=== PATIENT | male | born 1955 | race Caucasian/White ===

== ENCOUNTER 2024-06-10 16:22 | Emergency (ER) | payer MEDICARE, SELFPAY ==
[2024-06-10 16:22] VITALS: BP 164/99; PULSE 81; RESP 7; TEMP 36.4; O2SAT 99; BMI 28.5
--- NOTE | 2024-06-10 16:57 | CT_ITS ---
STUDY: CT FACIAL BONES WITHOUT CONTRAST REASON FOR EXAM: Male, 69 years old. Trauma RADIATION DOSAGE (If Supplied By Facility): CTDIvol = ( 29.38 ) mGy, DLP = ( 664.99 ) mGycm TECHNIQUE: The patient was scanned in a multi detector CT scanner. Sagittal and coronal images were reconstructed. Individualized dose optimization techniques were used for this CT. COMPARISON: None. FINDINGS: There is premaxillary soft tissue swelling and paranasal soft tissue swelling without evidence for acute fracture of the nasal bones or anterior maxillary spine.. Normal orbital kimball and orbital contents. There is mild mucosal thickening of the bilateral maxillary sinuses. CT/Sinus/Facial Bone IMPRESSION: No evidence for acute facial bone Mild maxillary sinusitis likely chronic Electronically Signed: Miles Pedroza MD at 18:49 EDT ,
--- NOTE | 2024-06-10 16:58 | ED.VIS.FALL ---
HPI HPI - Fall History of Present Illness Chief Complaint: Fall Narrative Narrative: 69-year-old male who denies significant past medical history presents with fall and injury to his face/nose. He was at work today, and was walking rather briskly. His feet got caught up and he fell forward. He heard a crack when he hit the ground. He noticed bleeding from his nose, and he states he feels pressure in his front teeth and has upper lip in the midline. He is unsure of his last tetanus immunization. He denies loss of consciousness, no neck pain. No other injuries except for his nose and his upper lip. Once again he states he feels pressure in his midface. He does not take blood thinners. PFSH PFSH Allergy/AdvReac Type Severity Reaction Status Date / Time No Known Allergies Allergy Verified 06/10/24 16:25 Social History Smoking Status: Never smoker ROS ROS ED ROS Narrative Constitutional: No fever, no chills. HEENT: No sore throat. No neck pain. No loss of vision. No rhinorrhea. Bleeding from nose. Pressure and midface and front teeth. Cardiovascular: No chest pain. No palpitations. No pedal edema. Respiratory: No cough, no shortness of breath. Abdominal: No abdominal pain. No nausea. No vomiting. Genitourinary: No dysuria. No hematuria. Musculoskeletal: No myalgias. No arthralgias. Neurologic: No headaches. No dizziness. No lightheadedness. No loss of consciousness. Skin: No rash. No change in color. EXAM Physical Exam Narrative Exam Narrative: GCS 15. ABCs intact. Head is normocephalic. PERRL, EOMI, no entrapment inspection of the nose reveals mild tenderness diffusely, but no crepitance. Small amount of blood left nares. No nasal septal hematoma. There is a hematoma of the upper lip with noted dried blood. Dentition appears normal without fracture. Neck soft and supple without vertebral point tenderness or bony step-off. Full range of motion. Cardiovascular examination regular rate and rhythm. Lungs clear to auscultation bilaterally. Abdomen soft nontender with normoactive bowel sounds. Neurological examination nonfocal and nonlateralizing. Alert, oriented x 3. Able to raise arms above head without difficulty. Neurovascular intact bilateral upper and lower extremities. Const Vital Signs: 06/10/24 16:22 06/10/24 17:16 Temperature 97.6 F L Temperature Source Temporal Pulse Rate 81 Respiratory Rate 7 L Respiratory Effort Normal Non-Labored Respiratory Depth Normal Respiratory Pattern Normal Blood Pressure 164/99 H Blood Pressure Mean 120 Pulse Ox 99 Oxygen Delivery Method Room Air MDM MDM MDM Narrative Medical decision making narrative: Differential diagnosis includes nasal fracture versus contusion and midface/maxillary fracture versus contusion. Patient declined analgesia or ice pack. His upper lip wound will be cleansed. While I feel CT imaging of the facial bones is indicated, I do not feel he needs CT of the brain or neck. I have very low suspicion for intracranial hemorrhage. I reviewed the radiology report of the CT facial bones and there is no evidence of acute facial bone fracture, there is mild maxillary sinusitis but likely chronic so I do not feel antibiotics are indicated. Repeat examination shows no evidence of laceration within his mustache that would need suture repair. He was referred to plastic surgery to follow-up as needed for his facial hematoma and nasal contusion. I feel he can be discharged to follow-up. Return instructions reviewed. Disposition is discharged home in stable condition. Radiography Diagnostic Testing: Clinical Impression(s) from Imaging Studies Facial/Sinus 06/10/24 16:57 IMPRESSION: No evidence for acute facial bone Mild maxillary sinusitis likely chronic Electronically Signed: Miles Pedroza MD at 18:49 EDT Reading Location ID and State: [address] [place] [address] Tel , Service support , Discharge Plan Triage Chief Complaint: Fall ED Provider: Orlin Beckford Dx/Rx/DC Orders Clinical Impression: Fall, Facial hematoma, Nasal contusion Instructions: ED Hematoma, ED Nasal Contusion Primary Care Provider: Ja Laureano Referrals: Ja Laureano MD [Primary Care Provider] - Bertrand Kingsley MD [Med Staff - Active Staff] - 3-5 Days Activity Restrictions/Additional Instructions: [id number] medications like Aleve or Tylenol for pain. Apply ice a few times a day. Follow-up with plastic surgery as needed. Print Language: [place] Disposition Disposition: Home, Self Care
[2024-06-10] MEDS: Diphth,Pertuss(Acell),Tet Vac 0.5 ML Vial IM (17:08)
== END 2024-06-10 19:45 | disposition home or self-care (01) ==
PROVIDERS: Emergency Provider Emergency Medicine; PCP Family Medicine; Visit Provider Emergency Medicine
DX: S00.531A Contusion of lip, initial encounter (principal); S00.33XA Contusion of nose, initial encounter; W01.0XXA Fall on same level from slipping, tripping and stumbling without subsequent striking against object, initial encounter; Y93.01 Activity, walking, marching and hiking; Z23 Encounter for immunization
CPT/HCPCS: 70486; 90471; 99282